=== PATIENT | female | born 2000 | race Two or more races ===

== ENCOUNTER 2022-04-13 17:31 | Emergency (ER) | payer MEDICAID ==
[~2022-04-13] VITALS: Ht 170.2 cm; Wt 83.9 kg
--- NOTE | 2022-04-13 18:25 | NUR ---
DR Jeffery at the bedside for MSE.
--- NOTE | 2022-04-13 18:54 | NUR ---
Patient discharged to home in stable condition. Written and verbal after care instructions given. Patient verbalizes understanding of instructions. Stressed follow up or return to ER for worsening s/s.
[2022-04-13 18:55] VITALS: BP 120/77
== END 2022-04-13 18:56 | disposition home or self-care (01) ==
LOC: ER 17:34
DX: S50.11XA Contusion of right forearm, initial encounter (principal); W01.0XXA Fall on same level from slipping, tripping and stumbling without subsequent striking against object, initial encounter; Y92.89 Other specified places as the place of occurrence of the external cause; Y99.8 Other external cause status; J45.909 Unspecified asthma, uncomplicated
CPT/HCPCS: 73070; A4663